=== PATIENT | male | born 1995 | race Caucasian/White ===

== ENCOUNTER 2017-01-09 15:18 | Emergency (ER) | payer BC ==
[~2017-01-09] VITALS: Ht 188 cm; Wt 102.3 kg
[2017-01-09 15:20] VITALS: BP 131/63; PULSE 75; TEMP 99.2
[2017-01-09] MEDS ORDERED: DOXYCYCLINE 10100 MG PO (15:54)
== END 2017-01-09 16:05 | disposition home or self-care (01) ==
LOC: COL.ER 15:18
DX: K61.1 Rectal abscess (principal)